=== PATIENT | male | born 1950 | race Caucasian/White ===

== ENCOUNTER 2020-09-25 12:20 | Day surgery (SDC) | payer OTHER ==
--- NOTE | 2020-09-10 11:42 | RAD REPORT ---
EXAM DESCRIPTION: Opal Hester And Henrique (2 Views)09/10/2020 11:33 am CLINICAL HISTORY: Preop. Hypertension COMPARISON: None FINDINGS: Lungs are mildly hyperaerated. The lungs appear clear of acute infiltrate. The heart is normal size IMPRESSION: No acute abnormalities displayed
[2020-09-10 11:45] LABS: Absolute Lymphocytes (CBC) 0.8 K/uL (0.7-4.9); Basophils % 0.7 % (0-1.3); Hematocrit 49.7 % (39.6-49.0); Lymphocytes % 12.7 % (15.3-44.8); MPV 9.6 fL (7.6-11.3); RBC Red Blood Cell Count 5.09 M/uL (4.33-5.43)
[2020-09-10 11:59] LABS: Protime INR 0.97
[2020-09-10 13:17] LABS: Potassium 4.2 mmol/L (3.5-5.1)
--- NOTE | 2020-09-11 07:20 | EKG ---
Test Date: 2020-09-10 Test Time: 10:16:02 Ground Crewman Aircraft Support: RAFA MEASUREMENT RESULTS: Intervals: Rate: 67 FL: QRSD: 96 QT: 382 QTc: 403 [place]: P: 77 FL: QRS: -38 T: 51 INTERPRETIVE STATEMENTS: Sinus rhythm with 2nd degree AV block ([place]ob[place] I) Left axis deviation Incomplete right bundle branch block Possible Anterior infarct, age undetermined Abnormal ECG No previous ECG available for comparison Electronically Signed On 09-11-20 07:18:17 CDT by Grabiel Cavanaugh
[2020-09-25] MEDS ORDERED: HEPA 1000U/500MLS 2,000 UNIT/1,000 ML BAG IV ONE (12:50)
[2020-09-25] MEDS ORDERED: NA CHLORIDE 0.9% 500 ML ONE (13:06)
[2020-09-25] MEDS ORDERED: MIDAZOLAM HCL 2 MG/2 ML INJ ONE (16:08)
[2020-09-25] MEDS ORDERED: HEPARIN 5000 UNIT/ML 1 ML VIAL ONE (16:08)
[2020-09-25] MEDS ORDERED: VERAPAMIL HCL 10 MG/4 ML VIAL IV ONE (16:09)
[2020-09-25] MEDS ORDERED: HEPARIN 10,000 UNIT/10 ML VIAL IV ONE (16:09)
[2020-09-25] MEDS ORDERED: NITROGLYCERIN 100 MCG/ML SYR (for cath lab use only) IV ONE (16:09)
[2020-09-25] MEDS ORDERED: ATROPINE SULF 1 MG/10 ML SYR IV ONE (16:09)
[2020-09-25] MEDS ORDERED: FENTANYL CITR 100 MCG/2 ML ONE (16:09)
[2020-09-25] MEDS ORDERED: HEPA 1000U/500MLS 1,000 UNIT/500 ML BAG IV ONE (17:19)
[2020-09-25] MEDS ORDERED: ASPIRIN 325 MG TAB ONE (17:51)
[2020-09-25] MEDS ORDERED: CLOPIDOGREL 75 MG TABLET ONE (17:51)
[2020-09-25 18:19] VITALS: TEMP 97.1
--- NOTE | 2020-09-25 18:37 | OP ---
Date of Procedure: 09/25/2020 Surgeon: BHARATH MENDIETA Procedures Performed: 1.Distal aortogram with bilateral selective peripheral angiogram. 2.Balloon angioplasty of OFFICE ASSISTANT of mid to distal right SFA 100% occlusion using a 6 x 10 mm balloon. Complications: None. Bleeding: Less than 50 mL. Description Of Procedure: After risks, benefits, and alternatives were explained, the patient agreed to proceed and signed informed consent. The patient was brought into the cardiac catheterization la boratory, prepped and draped in usual sterile fashion. Then, we accessed radial artery using pediatr ic micropuncture kit and placed a long 6-Azeri Destination sheath into the distal aorta and then we did a selective distal aorta angiogram and selective bilateral peripheral angiogram and then proceed with intervention. Intervention Details: We gave systemic heparin to assure ACT level above 250 and then we took a long Run-Through wire across the right common iliac, right femoral and the right SFA to the area of steno sis and then also we took a long Advantage wire to follow the Run-Through wire and then we were able to cross the stenosis with the Advantage wire and then followed that with the Run-Through wire and pl aced the wire in the vessels below the knee and then took a 6 x 100 mm balloon over the Run-Through w mary lou into the area of stenosis and balloon angioplasty was performed successfully. There was an area of 90% stenosis in the mid SFA on the right, also was successfully ballooned with the same balloon wi thout complications. Final results showed a ANDREWS-3 flow with excellent flow all the way to the feet with no complications. No dissection. Then, we took the wires and catheter out and placed TR band w ith good hemostasis. Findings: 1.Distal aorta is patent. 2.Right common iliac and right femoral arteries are patent with diffuse 10% to 20% stenosis. 3.Right profunda artery is patent. 4.Right SFA separately calcified with mid to distal OFFICE ASSISTANT 100% occlusion, status post successful ballo on angioplasty as above. 5.Right mqnxu-yiv-puwn vessels are all patent. 6.Right common iliac has a focal 80% stenosis at 2 different locations. 7.The right common femoral artery has an area of 90% stenosis at 2 different locations. 8.The left common iliac has 80% stenosis at 2 different locations and the left femoral artery has 90 % stenosis at 2 different locations. Left profunda was patent and the left SFA has diffuse 20% to 30 % calcified stenosis with good flow below the knee. Conclusion: 1.Severe right SFA OFFICE ASSISTANT mid to distal and severe right mid SFA stenosis, status post successful ballo on angioplasty as above with ANDREWS-[address] to the foot. 2.Severe left iliac and left femoral disease that will need intervention with a stent placement. Pl an to stage this due to contrast load and we will go to right femoral artery approach to work on that and also at the same time, we will plan for a selective coronary angiogram due to the severe periphe ral vascular disease. Plan: Aspirin, Plavix, high-dose statin. Follow up with me in the office in 1 week. SR/CESARL Voice ID: [id number] Report ID: [id number]
[2020-09-25 21:24] VITALS: BP 147/84; O2SAT 100
== END 2020-09-25 22:35 | disposition home or self-care (01) ==
LOC: CCL 12:20
PROVIDERS: ATTEND Internal Medicine
DX: I70.203 Unspecified atherosclerosis of native arteries of extremities, bilateral legs (principal); I70.92 Chronic total occlusion of artery of the extremities; I10 Essential (primary) hypertension; E78.5 Hyperlipidemia, unspecified; Z87.891 Personal history of nicotine dependence; Z20.822 Contact with and (suspected) exposure to COVID-19
CPT/HCPCS: 93005; 85025; 80048; 36415; 85610; 82947; 85347 ×2; 85730; 71046; 36200; 75630; 37224; U0002; C1893; C1887; C1725; C1769; J1644 ×3; J2250; J3010; J7040

== ENCOUNTER 2020-10-09 10:17 | Day surgery (SDC) | payer OTHER ==
[2020-10-07 10:02] LABS: Potassium 4.5 mmol/L (3.5-5.1)
[2020-10-07 10:19] LABS: Basophils % 0.7 % (0-1.3); Hematocrit 45.4 % (39.6-49.0); Lymphocytes % 13.4 % (15.3-44.8); MPV 9.2 fL (7.6-11.3); RBC Red Blood Cell Count 4.68 M/uL (4.33-5.43)
[2020-10-07 10:20] LABS: Protime INR 0.96
--- NOTE | 2020-10-08 16:13 | EKG ---
Test Date: 2020-10-07 Test Time: 08:33:30 Creasing And Cutting Press Feeder: TG MEASUREMENT RESULTS: Intervals: Rate: 69 ND: 280 QRSD: 96 QT: 380 QTc: 407 [place]: P: 73 ND: 280 QRS: 7 T: 60 INTERPRETIVE STATEMENTS: Sinus rhythm with 1st degree AV block Incomplete right bundle branch block Anteroseptal infarct, age undetermined Abnormal ECG Compared to ECG 09/10/2020 10:16:02 First degree AV block now present Left-axis deviation no longer present Myocardial infarct finding still present Electronically Signed On 10-08-20 16:07:27 CDT by Grabiel Cavanaguh
[2020-10-09] MEDS ORDERED: VERAPAMIL HCL 10 MG/4 ML VIAL IV ONE (10:41)
[2020-10-09] MEDS ORDERED: HEPA 1000U/500MLS 2,000 UNIT/1,000 ML BAG IV ONE (10:41)
[2020-10-09] MEDS ORDERED: HEPARIN 5000 UNIT/ML 1 ML VIAL ONE (10:41)
[2020-10-09] MEDS ORDERED: HEPARIN 10,000 UNIT/10 ML VIAL IV ONE (10:42)
[2020-10-09] MEDS ORDERED: MIDAZOLAM HCL 2 MG/2 ML INJ ONE (10:42)
[2020-10-09] MEDS ORDERED: ATROPINE SULF 1 MG/10 ML SYR IV ONE (10:42)
[2020-10-09] MEDS ORDERED: FENTANYL CITR 100 MCG/2 ML ONE (10:43)
[2020-10-09] MEDS ORDERED: NA CHLORIDE 0.9% 500 ML ONE (10:47)
[2020-10-09] MEDS ORDERED: NITROGLYCERIN/D5W 25 MG/250 ML BTL IV ONE (12:37)
[2020-10-09] MEDS ORDERED: NITROGLYCERIN 100 MCG/ML SYR (for cath lab use only) IV ONE (12:37)
[2020-10-09] MEDS ORDERED: HEPA 1000U/500MLS 1,000 UNIT/500 ML BAG IV ONE (12:58)
[2020-10-09] MEDS ORDERED: LIDOCAINE 1% MPF 30 ML VIAL ONE (14:02)
[2020-10-09 15:23] VITALS: TEMP 96.9
--- NOTE | 2020-10-09 16:00 | OP ---
Date of Procedure: 10/09/2020 Surgeon: BHARATH MENDIETA Procedures Performed: 1.Selective coronary angiogram. 2.Balloon angioplasty of severe left iliac and left femoral artery. Access: Right radial artery 6-Latvian and then the right femoral artery 7-Latvian closed with 6-Latvian Angio-Seal. Complications: None. Bleeding: Less than 10 mL. Indications: 1.Unstable angina. 2.Severe peripheral vascular disease. Description Of Procedure: After risks, benefits, and alternatives were explained, the patient agreed to the procedure and signed informed consent. The patient was brought into the cardiac catheterizat ion laboratory, prepped and draped in usual sterile fashion. Then, we accessed the right radial jose ry using pediatric micropuncture kit and placed a 6-Latvian slender sheath and then we took a 5-Latvian Temple 4.0 catheter into the aortic root, engaged left main and right coronary artery, took standard views and then took the catheter out and exchanged the 6-Latvian sheath for the long 6-Latvian Destinat ion sheath and placed it in the distal aorta. We then took Advantage Glidewire through it across the stenosis on the left iliac and femoral artery and placed it in the left SFA. Then, we took an 8 mm x 80 mm balloon, did angioplasty of 3 areas of the stenosis 80% of the iliac and then 80% of mid femo ral and then 90% of distal femoral with good expansion; however, 1 balloon ruptured and could not get it back into the sheath. We had to take it out with the sheath and the wire stuck onto the balloon. As such, we the radial access and then we went into the right femoral artery, took an ac cess and then went with an Advantage wire and [place] catheter over the wire and crossed into the left iliac and femoral artery into the SFA; however, could not advance the Destination sheath due to calci fications internally and the tortuosity. At this point, we took a final angiogram and showed no diss ection with good results of the angioplasty, so we decided to abort the procedure and plan for staged stenting through the left radial artery approach and we will do the PCI of the left circumflex at th e same time. Then, we removed the right femoral artery sheath and placed a 6-Latvian Angio-Seal with good hemostasis. Then, we placed TR band at the right radial access with good hemostasis. Findings: 1.Left main is normal. 2.LAD is normal. 3.Left circumflex; mid 80% to 90% stenosis. 4.RCA; mid 30% stenosis. Left common iliac artery has 80% stenosis, heavily calcified and the mid femoral artery on the left i s 80% and distal has 90% stenosis, status post balloon angioplasty using 8 mm x 80 mm balloon. Conclusions: 1.Severe left circumflex stenosis. 2.Severe left common iliac and left common femoral artery stenosis, status post balloon angioplasty as above. Plan: Staged PCI of left circumflex and stent placement of left femoral and left iliac to be done in [place] due to a lack of appropriate length and size of stents in this facility. We will plan to do this next week in [place]. /WILBERTO Voice ID: [id number] Report ID: [id number]
[2020-10-09 18:36] VITALS: BP 138/83; O2SAT 100
== END 2020-10-09 18:15 | disposition home or self-care (01) ==
LOC: CCL 10:17
PROVIDERS: ATTEND Internal Medicine
DX: I25.110 Atherosclerotic heart disease of native coronary artery with unstable angina pectoris (principal); I70.202 Unspecified atherosclerosis of native arteries of extremities, left leg; I10 Essential (primary) hypertension; I44.0 Atrioventricular block, first degree; E78.5 Hyperlipidemia, unspecified; F17.210 Nicotine dependence, cigarettes, uncomplicated; Z20.822 Contact with and (suspected) exposure to COVID-19
CPT/HCPCS: 93005; 85025; 80048; 36415; 85610; 85730; 93454; U0003; C1893; C1760; C1887; C1725; C1769; J1644 ×3; J2250; J3010; J7040; 36200; 85347

== ENCOUNTER 2022-04-01 12:30 | Observation (INO) | payer OTHER ==
--- NOTE | 2022-03-29 11:09 | RAD REPORT ---
EXAM DESCRIPTION: RAD - Chest Pa And Lat (2 Views) - 03/29/2022 10:46 am CLINICAL HISTORY: Pre op pending abdominal angiogram COMPARISON: Two view chest 09/10/2020 TECHNIQUE: Frontal and lateral views of the chest were obtained. FINDINGS: The lungs are clear of a peripheral mass or consolidation. Chronic interstitial pattern ma tches comparison. No failure or volume overload findings. Heart size is normal and central vasculat ure is within normal limits. No pleural effusion or pneumothorax seen. No acute bony finding noted. No aortic abnormality. IMPRESSION: No acute cardiopulmonary process. Chronic interstitial pattern matches comparison.
[2022-03-29 12:04] LABS: Absolute Lymphocytes (CBC) 0.9 K/uL (0.7-4.9); Hematocrit 39.2 % (39.6-49.0); Lymphocytes % 12.3 % (15.3-44.8); MCV 96.8 fL (80-100); MPV 9.7 fL (7.6-11.3); RBC Red Blood Cell Count 4.04 M/uL (4.33-5.43)
[2022-03-29 12:11] LABS: SARS-CoV-2 Antigen Rapid Res Negative (Negative)
[2022-03-29 12:16] LABS: Potassium 4.3 mmol/L (3.5-5.1)
[2022-03-29 12:29] LABS: Protime INR 0.99
--- NOTE | 2022-03-29 14:12 | EKG ---
Test Date: 2022-03-29 Test Time: 10:32:51 Penal Officer: RAFA MEASUREMENT RESULTS: Intervals: Rate: 74 [place]: 272 QRSD: 94 QT: 378 QTc: 419 [place]: P: 56 [place]: 272 QRS: -26 T: 67 INTERPRETIVE STATEMENTS: Sinus rhythm with 1st degree AV block Possible Left atrial enlargement Low voltage QRS Cannot rule out Anterior infarct, age undetermined Abnormal ECG Compared to ECG 10/07/2020 08:33:30 Low QRS voltage now present Incomplete right bundle-branch block no longer present Myocardial infarct finding still present Electronically Signed On 03-29-22 14:11:53 CDT by Cosme Davies
[~2022-04-01 12:30] MED LIST: HEPA 1000U/500MLS 2,000 UNIT/1,000 ML BAG IV ONE; NA CHLORIDE 0.9% 500 ML ONE
[2022-04-01] MEDS ORDERED: FENTANYL CITR 100 MCG/2 ML ONE ×2 (12:53→14:13)
[2022-04-01] MEDS ORDERED: MIDAZOLAM HCL 2 MG/2 ML INJ ONE (12:53)
[2022-04-01] MEDS ORDERED: ATROPINE SULF 1 MG/10 ML SYR IV ONE ×2 (12:54→15:42)
[2022-04-01] MEDS ORDERED: LIDOCAINE 1% MPF 30 ML VIAL ONE (12:54)
[2022-04-01] MEDS ORDERED: HEPARIN 10,000 UNIT/10 ML VIAL IV ONE (13:15)
[2022-04-01] MEDS ORDERED: NA CHLORIDE 0.9% 500 ML ONE (14:15)
--- NOTE | 2022-04-01 15:55 | OP ---
Date of Procedure: 04/01/2022 Surgeon: BHARATH MENDIETA Procedure Performed: Bilateral peripheral angiogram, selective. Indication: Severe peripheral vascular disease, severe pain in right lower extremity and abnormal lo wer extremity arterial Doppler. Access: Left femoral vein, 6-Vatican Citizen, closed with StarClose. Complications: None. Bleeding: Less than 10 mL. Anesthesia: Total sedation time was 60 minutes. Description Of Procedure: After risks, benefits, alternatives were explained, the patient agreed to procedure and signed informed consent. The patient was brought into the cardiac catheterization labo ratory, prepped and draped in the usual sterile fashion. Then, I accessed left femoral artery using micropuncture kit, fluoroscopy, and ultrasound guidance, placed 6-[place] Citizen [place] sheath. Then, I to ok an Omni Flush catheter into the ostial left common iliac artery and performed a selective angiogra m of the left lower extremity and then crossed over to the right side and performed an angiogram and then I sent a [place] Advantage wire all the way to the distal SFA, exchanged for 6-[place] Citizen Destination sheath and then I took a 5 x 80 mm drug-coated balloon to the area of distal SFA stenosis and did bal loon angioplasty with excellent angiographic results at the end. There is mild dissection at the end , but there is not flow limiting, so I elected to leave it alone without stenting. The patient was g iven heparin throughout the procedure to assure ACT level above 250 and then at the end of the proced ure trying to remove the Destination sheath, pressure was in the femoral artery and internal iliac ar aakash. Systolic was in the 70s and once I pulled it back to the ostium of the right common iliac jose ry and pressure normalized was 130-140 indicating severe common iliac artery stenosis. Then, I remov ed the sheath and StarClose was used for closure with good results. Findings: 1.Left lower extremity; patent common iliac, internal iliac, common femoral with patent stent and di ffuse 10% to 20% ISR and then the left profunda appears to be patent, left SFA mild diffuse 30% to 40 % stenosis, and then there was 3-vessel runoff below the knee with acceptable flow. 2.Right lower extremity; there was an ostial to proximal right common iliac artery stenosis that is significant at least 80%, significant difference in pressure before the stenosis. Then, the common f emoral artery has 30% to 40% multiple layers of stenosis, the right profunda appears patent, the righ t SFA is patent until the distal portion has 90% stenosis status post successful balloon angioplasty used 5 x 80 mm drug-coated balloon and then 3-vessel runoff is acceptable below the knee. Conclusion: 1.Severe right distal SFA stenosis, status post successful balloon angioplasty using a drug-coated b alloon. 2.Severe right common iliac artery. He will need IVUS-guided intervention with balloon angioplasty and stent placement. We will do it in [place] in about 4 weeks. SR/MODL Voice ID: [id number] Report ID: [id number]
--- NOTE | 2022-04-01 16:12 | RAD REPORT ---
EXAM DESCRIPTION: CT - Abdomen Pelvis Wo Contrast - 04/01/2022 4:06 pm CLINICAL HISTORY: Abdominal pain. R/O PERITONEAL BLEEDING COMPARISON: No comparisons TECHNIQUE: CT imaging of the abdomen and pelvis was performed without contrast. Solid organ, bowel a nd vascular assessment is limited due to lack of IV and oral contrast. All CT scans are performed using dose optimization technique as appropriate and may include automated exposure control or mA/KV adjustment according to patient size. FINDINGS: The lower lung storey are clear. The liver, spleen, pancreas, adrenal glands and kidneys are within normal limits for a limited non-co ntrast examination. No bowel obstruction, free air, free fluid or abscess. The appendix is normal. Significant atheroscl erosis is present of the aorta and iliac vessels. Moderate volume of increased density material seen in the left inguinal region extending superior ear ly along the left flank musculature compatible with a moderate hematoma. No significant retroperitone al bleeding. Mild lumbar degenerative changes. IMPRESSION: Moderate hematoma suspected left inguinal region extending superiorly along the left fla nk musculature. No retroperitoneal bleeding. A limited non-contrast examination was performed as detailed.
[2022-04-01 16:38] LABS: Hematocrit 34.9 % (39.6-49.0)
--- OUTSIDE RECORDS SUMMARY | 2022-04-01 17:34 | XMS REPORT | Continuity of Care Document ---
:1950 Author Organization [facility] t Address [address] [place] [address] Care Team Providers Name Role Phone SEHT RICHY Primary Care Physician Unavailable Cosme Davies Attending Clinician Unavailable Beryl Dinero MD Attending Clinician BERYL DINERO Attending Clinician Unavailable Only, Adc Test Attending Clinician Unavailable Beryl Dinero MD Admitting Clinician BERYL DINERO Admitting Clinician Unavailable Payers Payer Name Policy Type Policy Number Effective Date Expiration Date S ource Problems Condition Condition Condition Status Onset Resolution Last Treating Co mments Source Name Details Category Date Date Treatment Clinician Date No known No known Disease Unive rs active active ity of problems problems [facility] Allergies, Adverse Reactions, Alerts Allergy Allergy Status Severity Reaction(s) Onset Inactive Treating Comm ents Source Name Type Date Date Clinician No Known DA Active U [facility] Allergie - Clear s 00:00: Fernandez 00 [facility] No Known DA Active U [facility] Allergie - Clear s 00:00: Fernandez 00 [facility] NO KNOWN Drug Active Univers ALLERGIE Class ity of S [facility] Social History Social Habit Start Date Stop Date Quantity Comments Source History of Passive smoker University of tobacco use [facility] Alcohol intake 2022-01-12 2022-01-12 5 /d University of 00:00:00 00:00:00 [facility] Exposure to 2021-12-29 2022-01-08 Not sure University SARS-CoV-2 00:00:00 10:52:00 [place] [facility] (event) Branch Tobacco use and 2021-12-28 2021-12-28 Smokeless tobacco Un iversity of exposure 00:00:00 00:00:00 non-user [facility] Sex Assigned At [birth year] Universit y of 00:00:00 00:00:00 [facility] Smoking Status Start Date Stop Date Source Ex-smoker 2021-12-28 00:00:00 2021-12-28 00:00:00 [facility] Medications Ordered Filled Start Stop Current Ordering Indication Dosage Frequency Signature Comments Components Source Medication Medication Date Date Medication? Clinician (SIG) Name Name water for 2021- No PRN, Univers irrigation 01-12 Starting ity of [place] 19:11: 20[place]36 [place] solution 00 :46 01/12/22 at Medic al 1411, Branch Until Tue01/12/22 at 1536, Routine, Intra-op simethicone 2021- No PRN, Unive rs (GAS RELIEF 01-12 Starting ity of (SIMETHICON 19:10: 20:36 on Tue [place] E)) 40 00 :46 01/12/22 at Medical mg/0.6 mL 1410, Branch drops Until Tue01/12/22 at 1536, Routine, Intra-op clopidogreL Yes 75mg Take 75 mg Univers 75 mg 01-12 by mouth ity of tablet 16:19: in the [place] [address] morning. Medical Branch aspirin 81 Yes 81mg Take 81 mg U nivers mg EC -26 by mouth ity of tablet 16:19: in the [place] [address] morning. Medical Branch atorvastati Yes 20mg Take 20 mg Univers n 20 mg 7-26 by mouth ity of tablet 16:19: at [place] [address] bedtime. Medical Branch amLODIPine Yes 10mg Take 10 mg U nivers 10 mg 7-26 by mouth ity of tablet 16:19: in the [place] [address] morning. Medical Branch benazepriL Yes 20mg Take 20 mg U nivers 20 mg 7-26 by mouth ity of tablet 16:19: in the [place] 39 morning. Medical Branch hydroCHLORO 2021-0 Yes 25mg Take 25 mg Univers thiazide 25 7-26 by mouth ity of mg tablet 16:19: in the [place] 39 morning. Medical Branch ascorbic 2021-0 Yes 500mg Take 500 Univ ers acid, 7-26 mg by ity of vitamin C, 16:19: mouth in [place] 500 mg 39 the Medical tablet morning. Branch Zinc 50 mg 2021-0 Yes 1{tbl} Take 1 Uni vers Tab 7-26 tablet by ity of 16:19: mouth [place] 39 daily. Medical Branch Cholecalcif 2021-0 Yes 1{tbl} Take 1 Un omer en, 7-26 tablet by ity of Vitamin D3, 16:19: mouth in [place] 50 mcg 39 the Medical (2,000 morning. Branch unit) tablet clopidogreL 0 Yes 75mg Take 75 mg Univers 75 mg 7-26 by mouth ity of tablet 16:19: in the [place] 39 morning. Medical Branch aspirin 81 2021-0 Yes 81mg Take 81 mg U nivers mg EC 7-26 by mouth ity of tablet 16:19: in the [place] 39 morning. Medical Branch atorvastati 2021-0 Yes 20mg Take 20 mg Univers n 20 mg 7-26 by mouth ity of tablet 16:19: at [place] [address] bedtime. Medical Branch amLODIPine 2021-0 Yes 10mg Take 10 mg U nivers 10 mg 7-26 by mouth ity of tablet 16:19: in the [place] 39 morning. Medical Branch benazepriL 2021-0 Yes 20mg Take 20 mg U nivers 20 mg 7-26 by mouth ity of tablet 16:19: in the [place] 39 morning. Medical Branch hydroCHLORO 2021-0 Yes 25mg Take 25 mg Univers thiazide 25 7-26 by mouth ity of mg tablet 16:19: in the [place] 39 morning. Medical Branch ascorbic 2021-0 Yes 500mg Take 500 Univ ers acid, 7-26 mg by ity of vitamin C, 16:19: mouth in [place] 500 mg 39 the Medical tablet morning. Branch Zinc 50 mg 2021-0 Yes 1{tbl} Take 1 Uni vers Tab 7-26 tablet by ity of 16:19: mouth [place] 39 daily. Medical Branch Cholecalcif 2022-0 Yes 1{tbl} Take 1 Un omer en, 7-26 tablet by ity of Vitamin D3, 16:19: mouth in [place] 50 mcg 39 the Medical (2,000 morning. Branch unit) tablet clopidogreL Yes 75mg Take 75 mg Univers 75 mg 7-11 by mouth ity of tablet 14:23: in the [place] 23 morning. Medical Branch aspirin 81 0 Yes 81mg Take 81 mg U nivers mg EC 7-11 by mouth ity of tablet 14:23: in the [place] 23 morning. Medical Branch atorvastati Yes 20mg Take 20 mg Univers n 20 mg 7-11 by mouth ity of tablet 14:23: at [place] [address] bedtime. Medical Branch amLODIPine Yes 10mg Take 10 mg U nivers 10 mg 7-11 by mouth ity of tablet 14:23: in the [place] 23 morning. Medical Branch benazepriL Yes 20mg Take 20 mg U nivers 20 mg 7-11 by mouth ity of tablet 14:23: in the [place] 23 morning. Medical Branch hydroCHLORO Yes 25mg Take 25 mg Univers thiazide 25 7-11 by mouth ity of mg tablet 14:23: in the [place] 23 morning. Medical Branch ascorbic Yes 500mg Take 500 Univ ers acid, 7-11 mg by ity of vitamin C, 14:23: mouth in [place] (VITAMIN C) 23 the Medical 500 mg morning. Branch tablet Zinc 50 mg Yes 1{tbl} Take 1 Uni vers Tab 7-11 tablet by ity of 14:23: mouth [place] 23 daily. Medical Branch Cholecalcif Yes 1{tbl} Take 1 Un omer en, 7-11 tablet by ity of Vitamin D3, 14:23: mouth in [place] (VITAMIN 23 the Medical D3) 50 mcg morning. Branc h (2,000 unit) tablet Vital Signs Vital Name Observation Time Observation Value Comments Source Systolic blood 2022-01-12 21:03:00 133 mm[Hg] Univer sity of pressure [facility] Diastolic blood 2022-01-12 21:03:00 68 mm[Hg] Unive rsity of pressure [facility] Heart rate 2022-01-12 21:03:00 55 /min Universi ty of [facility] Respiratory rate 2022-01-12 21:03:00 19 /min Univ ersity of [facility] Oxygen saturation in 2022-01-12 21:03:00 100 /min University of Arterial blood by [facility] Pulse oximetry Branch Body temperature 2022-01-12 18:37:00 36.44 Lela Univ ersity of [facility] Body weight 2022-01-08 16:00:00 103.42 kg Universi ty of [facility] BMI 2022-01-08 16:00:00 31.80 kg/m2 Universi ty [facility] Systolic blood 2022-01-12 18:37:00 140 mm[Hg] Univer sity of pressure [facility] Diastolic blood 2022-01-12 18:37:00 60 mm[facility]Hg] [facility] rate 2022-01-12 18:37:00 73 /min Universi ty [facility] Body temperature 2022-01-12 18:37:00 36.44 Lela [facility] Respiratory rate 2022-01-12 18:37:00 15 /min Univ ersity of [facility] Oxygen saturation in 2022-01-12 18:37:00 100 /min University of Arterial blood by [facility] Pulse oximetry Branch BMI 2022-01-08 16:00:00 31.80 kg/m2 Universi ty of [facility] Body weight 2022-01-08 16:00:00 103.42 kg [facility] Procedures Procedure Date / Time Performing Clinician Source Performed COLONOSCOPY (ENDO) 2022-01-12 19:58:34 [facility] COLONOSCOPY (ENDO) 2022-01-12 19:58:34 Richy [facility] COLONOSCOPY 2022-01-12 19:48:00 Beryl Dinero [facility] DAY SURGERY - ADC 2022-01-12 05:01:00 Doctor Unassigned, [facility] [place] [facility] CONSENT/REFUSAL FOR 2022-01-11 15:25:54 Doctor Unassigned, [facility] DIAGNOSIS AND TREATMENT [place] [facility] [place] CONSENT/REFUSAL FOR 2022-01-11 15:25:54 Doctor Unassigned, [facility] DIAGNOSIS AND TREATMENT [facility] ASSIGNMENT OF BENEFITS 2022-01-11 15:25:11 Doctor Unassigned, [facility] [facility] ASSIGNMENT OF BENEFITS 2022-01-11 15:25:11 Doctor Unassigned, [facility] NOTICE OF BILLING 2022-01-11 15:24:43 Doctor Unassigned, [facility] FOR MEDICARE [place] [facility] [place] PATIENTS NOTICE OF BILLING 2022-01-11 15:24:43 Doctor Unassigned, [facility] FOR MEDICARE [place] [facility] [place] PATIENTS [facility] PATIENT FINANCIAL 2022-01-11 15:24:27 Doctor Unassigned, [facility] POLICY [place] [facility] PATIENT FINANCIAL 2022-01-11 15:24:27 Doctor Unassigned, [facility] POLICY [facility] [place] [facility] NO SHOW OR MISSED 2022-01-11 15:24:08 Doctor Unassigned, [facility] APPOINTMENT POLICY [place] [facility] h ACKNOWLEDGEMENT NO SHOW OR MISSED 2022-01-11 15:24:08 Doctor Unassigned, [facility] APPOINTMENT POLICY [place] [facility] ACKNOWLEDGEMENT NOTICE OF PRIVACY 2022-01-11 15:23:48 Doctor Unassigned, [facility] NOTICE OF PRIVACY 2022-01-11 15:23:48 Doctor Unassigned, [facility] CONSENT/REFUSAL FOR 2022-01-11 15:23:33 Doctor Unassigned, [facility] DIAGNOSIS AND TREATMENT [place] [place] [facility] CONSENT/REFUSAL FOR 2022-01-11 15:23:33 Doctor Unassigned, [facility] DIAGNOSIS AND TREATMENT [facility] ASSIGNMENT OF BENEFITS 2022-01-11 15:23:15 [facility] [facility] ASSIGNMENT OF BENEFITS 2022-01-11 15:23:15 Doctor Unassigned, [facility] DISCLOSURE AND CONSENT, 2022-01-07 05:01:00 [facility]ICAL [place] [facility] PROCEDURES DISCLOSURE AND CONSENT, 2022-01-07 05:01:00 Doctor Unassigned, [facility] MEDICAL AND SURGICAL [place] [facility] PROCEDURES Encounters Start End Encounter Admission Attending Care Care Encounter Source Date/Time Date/Time Type Type Clinicians Facility Department ID 2020-11-15 Inpatient ZENY Davies [facility] [id number] [facility] 05:02:48 Cosme 73 [facility] 2022-01-12 2022-01-12 [facility] [id number] Univers 13:29:00 16:14:00 Encounter eBeryl [id number] ity [place] [id number] [facility] 071 Branch 2022-01-12 2022-01-12 Outpatient R [facility] 003 [id number] Univers 13:29:00 16:14:00 [facility] 2022-01-12 2022-01-12 Surgery [facility] [id number] Univers 13:31:00 14:11:00 Beryl jones [id number] [id number] [id number] [facility] 020 Branch 2022-01-11 2022-01-11 Laboratory Only, Adc Test [facility] [id number] Univers 14:30:00 14:45:00 Only Beryl Dinero 350.1.1 3.10 [place] [id number] [facility] 353 Branch 2022-01-11 2022-01-11 Outpatient R [facility] [id number] Univers 14:30:00 14:30:00 [facility]L [facility] Results Test Description Test Time Test Comments Results Result Comments Source BASIC METABOLIC PANEL 2020-11-13 07:55:00 Test Item Value Reference Range Interpretation Comme nts SODIUM (test code = NA) 139 mEq/L 134-147 N POTASSIUM (test code = K) 4.2 mEq/L 3.4-5.0 N CHLORIDE (test code = CL) 108 mEq/L 100-108 N CARBON DIOXIDE (test code = CO2) 27 mEq/l 21-33 N ANION GAP (test code = GAP) 9 0-20 N GLUCOSE (test code = GLU) 77 mg/dL 70-110 N BLOOD UREA NITROGEN (test code = 16 mg/dL 7-18 N BUN) GLOMERULAR FILTRATION RATE (test 73.5 70-80 N Units of measure = ml/min/1.73 code = GFR) m2 CREATININE (test code = CREAT) 1.0 mg/dL 0.6-1.3 N CALCIUM (test code = CA) 9.0 mg/dL 8.0-10.5 N [id number] 16:37:00 Test Item Value Reference Range Interpretation Comments ACT-ISTAT (test code 268 SEC 74-137 H 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 [facility] [id number] 15:50:00 Test Item Value Reference Range Interpretation Comments ACT-ISTAT (test code 263 SEC 74-137 H 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 [facility] - XR CHEST 2 [id number] 12:17:00 [facility] 1950 Sex: M FAX: Cosme Nichole MD [phone] [place]: St: PRE FAX: Presley Troncoso MD [phone] Name: DELMI NIETO LakeDOB: 1950 Age/S: 70/M [address] [place] [address] Blvd Unit #: [id number] Loc: [place] [address] Phys: Cosme Davies MD Acct: [id number] Dis Date: Status: PRE SDC PHONE #: [phone] Exam Date: 11/10/2020 114 FAX #: [phone] Reason: PERIPHERAL ANGIO EXAMS: CPT CODE: [id number] XR CHEST 2 V [id number] EXAM: XR CHEST 2 VIEWS DATE: 11/10/2020 10:55 AM : 1950; Age: 70 years y/o Male INDICATION: Coronary artery disease, PERIPHERAL ANGIO COMPARISON: None. TECHNIQUE: PA and lateral chest radiographs. FINDINGS: Lines, tubes and bones: Pectus deformity is seen. Lungs and pleura: The lungs are clear. No pleural effusion. Heart and mediastinum: The heart size is normal for technique. Vascularcalcifications are present at the aorta. Pulmonary vascularity is normal. IMPRESSION: No acute cardiopulmonary process. SL: [id number] at 1217 Reported and signed by: Grant Padgett D.O. CC: Cosme Davies MD; Presley Artis MD Technologist: Dipti Garces, RT(R) Trnscrd Date/Time/By: 11/10/2020 (8623) : By: [email or web address] Orig Print D/T: S: 11/10/2020 (3404) PAGE 1 Signed ReportBASIC METABOLIC [id number] 12:04:00 Test Item Value Reference Range Interpretation Comments SODIUM (test code = NA) 141 mEq/L 134-147 N POTASSIUM (test code = 4.2 mEq/L 3.4-5.0 N K) CHLORIDE (test code = 108 mEq/L 100-108 N CL) CARBON DIOXIDE (test 30 mEq/l 21-33 N code = CO2) ANION GAP (test code = 7 0-20 N GAP) GLUCOSE (test code = 103 mg/dL 70-110 N GLU) BLOOD UREA NITROGEN 17 mg/dL 7-18 N (test code = BUN) GLOMERULAR FILTRATION 59.5 70-80 L Units of measure = RATE (test code = GFR) ml/mi n/1.73 m2 CREATININE (test code = 1.2 mg/dL 0.6-1.3 N CREAT) CALCIUM (test code = 9.9 mg/dL 8.0-10.5 N CA) PROTHROMBIN [id number] 11:56:00 Test Item Value Reference Range Interpretation Comments PROTHROMBIN TIME 11.6 SECONDS 9.3-12.9 N PATIENT (test code = PTP) INTERNATIONAL NORMAL 1.1 0.8-1.2 N TARGET INR BY RATIO (test code = INDICATIO N Indication INR) INR1. Prophylax is of venous thrombos is 2.0 - 3.0 (orthoped ic surgery), Proph ylaxis of venous throm bosis (other than hig h-risk surgery), Treat ment of Deep Vein Thrombosis/Pulm onary Embolism, Preve ntion of systemic emb olism - Tissue heart va lves, Acute Myocardia l Infarction (to prevent systemic emboli sm), Valvular heart disease, Atrial Fibrillation, Bileaflet mecha nical valve in aortic position.2. Mec hanical prosthetic valv es (high risk), 2. 5 - 3.5 Presence of Lup us Anticoagulant o r Antiphospholipi d Antibodies, Pre vention of systemic emb olism - Acute Myocardia l Infarction (to prevent recurrent infar ct). CBC W/AUTO [id number] 11:49:00 Test Item Value Reference Range Interpretation Comments WHITE BLOOD CELL (test code = 7.9 x10 3/uL 4.5-11.0 N WBC) RED BLOOD CELL (test code = 4.57 x10 6/uL 4.00-5.60 N RBC) HEMOGLOBIN (test code = HGB) 15.0 g/dL 12.5-16.9 N HEMATOCRIT (test code = HCT) 46.2 % 37.5-50.7 N MEAN CELL VOLUME (test code = 101.1 fL 81.0-99.0 H MCV) MEAN CELL HGB (test code = MCH) 32.8 pg 27.0-33.0 N MEAN CELL HGB CONCETRATION 32.5 g/dL 33.0-37.0 L (test code = MCHC) RED CELL DISTRIBUTION WIDTH CV 12.8 % 11.5-14.5 N (test code = RDW) RED CELL DISTRIBUTION WIDTH SD 48.1 fL 37.0-54.0 N (test code = RDW-SD) PLATELET COUNT (test code = 192 x10 3/uL 150-400 N PLT) MEAN PLATELET VOLUME (test code 11.1 fL 7.0-9.0 H = MPV) NEUTROPHIL % (test code = NT%) 79.3 % 56.0-77.0 H IMMATURE GRANULOCYTE % (test 0.4 % 0.0-2.0 N code = IG%) LYMPHOCYTE % (test code = LY%) 13.2 % 14.0-32.0 L MONOCYTE % (test code = MO%) 5.2 % 4.8-9.0 N EOSINOPHIL % (test code = EO%) 1.3 % 0.3-3.7 N BASOPHIL % (test code = BA%) 0.6 % 0.0-2.0 N NUCLEATED RBC % (test code = 0.0 % 0-0 N NRBC%) NEUTROPHIL # (test code = NT#) 6.25 x10 3/uL 2.0-7.6 N IMMATURE GRANULOCYTE # (test 0.03 x10 3/uL 0.00-0.03 N code = IG#) LYMPHOCYTE # (test code = LY#) 1.04 x10 3/uL 1.0-3.8 N MONOCYTE # (test code = MO#) 0.41 x10 3/uL 0.1-0.8 N EOSINOPHIL # (test code = EO#) 0.10 x10 3/uL 0.0-0.2 N BASOPHIL # (test code = BA#) 0.05 x10 3/uL 0.0-0.2 N NUCLEATED RBC # (test code = 0.00 x10 3/uL 0.0-0.1 N NRBC#) MANUAL DIFF REQUIRED (test code NO = MDIFF)
[2022-04-01 18:16] VITALS: BMI 30.5
[2022-04-01 23:57] LABS: Hematocrit 32.1 % (39.6-49.0)
[2022-04-02 05:54] LABS: Hematocrit 33.1 % (39.6-49.0)
[2022-04-02 08:05] VITALS: O2SAT 99
[2022-04-02 08:57] VITALS: BP 160/59; TEMP 97.6
--- NOTE | 2022-04-02 13:57 | P.SSS ---
Patient History Date of Service: 04/02/22 Reason for admission: SYNCOPE AFTER CATH History of Present Illness: DELMI HAD CATH, PTCA, STENT FOR PVD. DR. MENDIETA WANTED PCP TO TAKE CARE OF ADMISSION NOTE BUT NO ONE TOLD ME ABOUT HIM UNTIL 9 AM. HE WAS VERY RESTLESS AND WANTED TO GO HOME. I TALKED TO HIM, MADE SURE HE IS STABLE, CALLED ME TO GET HIM HOME. HE IS HAD SYNCOPE AFTER STENT BUT IS OKAY NOW. HE WAS ABLE TO AMBLULATE AND WANTED TO GO HOME. Allergies No Known Allergies Allergy (Verified 03/29/22 10:13) Home Medications: Amlodipine [Norvasc] 10 mg PO DAILY 10/07/20 Aspirin [Aspirin EC 81 MG] 81 mg PO DAILY 10/07/20 Benazepril HCl 10 mg PO DAILY 10/07/20 Clopidogrel Bisulfate [Plavix] 75 mg PO DAILY 10/07/20 Rosuvastatin [Crestor] 10 mg PO DAILY 10/07/20 Ascorbic Acid [Vitamin C] 500 mg PO DAILY 03/29/22 Cholecalciferol (Vitamin D3) [Vitamin D 1000 Iu Tab] 1,000 unit PO DAILY 03/29/22 Zinc Gluconate [Zinc] 50 mg PO DAILY 03/29/22 hydroCHLOROthiazide [Hydrodiuril] 25 mg PO DAILY 03/29/22 - Social History Smoking Status: Never smoker Alcohol use: Yes Place of Residence: Home Physical Examination - Vital Signs Temperature: 97.6 F Blood Pressure: 160/59 Pulse: 90 Respirations: 18 Pulse Ox (%): 98 - Physical Exam General: Alert, Oriented x3, Other (NOT ABLE TO DO DETAILED EXAM HE LEFT BEFORE LUNCH WHEN I CAN COME TO SEE HIM.) - Studies Laboratory Data (last 24 hrs) 04/02/22 05:19: Hgb 11.2 L, Hct 33.1 L 04/01/22 23:06: Hgb 11.0 L, Hct 32.1 L 04/01/22 16:11: Hgb 11.8 L, Hct 34.9 L - Diagnosis (Problem(s)) (1) Vasovagal syncope Status: Acute Plan: POSSIBLE PAIN OR HEMATOMA RELATED PER DR. MENDIETA. STABLE FOR HOME. HE WILL FU WITH US. - Disposition Disposition: [place] [facility]/HOME HEALTH CARE
== END 2022-04-02 09:30 | disposition home health service (06) ==
LOC: CCL 12:30 → 2ND 13:00
PROVIDERS: ADMIT Internal Medicine; ATTEND Internal Medicine
DX: I70.203 Unspecified atherosclerosis of native arteries of extremities, bilateral legs (principal); T82.856A Stenosis of peripheral vascular stent, initial encounter; R55 Syncope and collapse; I25.10 Atherosclerotic heart disease of native coronary artery without angina pectoris; I44.0 Atrioventricular block, first degree; I10 Essential (primary) hypertension; E78.5 Hyperlipidemia, unspecified; Z79.82 Long term (current) use of aspirin; Z79.02 Long term (current) use of antithrombotics/antiplatelets; Z79.899 Other long term (current) drug therapy; Z87.891 Personal history of nicotine dependence; Z20.822 Contact with and (suspected) exposure to COVID-19
CPT/HCPCS: 93005; 85025; 80048; 36415 ×2; 86900; 86850; 85610; 86901; 85347 ×2; 85730; 85018 ×3; 85014 ×3; 74176; 71046; 75716; 36245; 37224; 87811; C1893; C1725; C1769; J2250; J3010 ×2; J7040 ×2; J1644; G0379; G0378 ×2; 36200; 37225